=== PATIENT | male | born 1950 | race Caucasian/White ===

== ENCOUNTER 2020-01-23 11:50 | Emergency (ER) | payer MEDICARE, OTHER ==
[~2020-01-23] VITALS: Ht 170.2 cm; Wt 88.5 kg
[2020-01-23] MEDS ORDERED: GLIP10 PO (12:05)
[2020-01-23] MEDS ORDERED: EZETIMIBE10 MG PO (12:05)
[2020-01-23] MEDS ORDERED: ACTOS30 MG PO (12:05)
[2020-01-23] MEDS ORDERED: Metformin HCl1000 MG PO (12:05)
[2020-01-23] MEDS ORDERED: AMLODIPINE BESYL5 MG PO (12:05)
[2020-01-23] MEDS ORDERED: Percocet 7.5-31 EACH PO (13:59)
[2020-01-23] MEDS ORDERED: IBUP800 PO (13:59)
== END 2020-01-23 14:38 | disposition home or self-care (01) ==
LOC: ER 11:50
DX: S42.212A Unspecified displaced fracture of surgical neck of left humerus, initial encounter for closed fracture (principal); S22.42XA Multiple fractures of ribs, left side, initial encounter for closed fracture; E11.9 Type 2 diabetes mellitus without complications; I10 Essential (primary) hypertension; Z88.5 Allergy status to narcotic agent; Z91.040 Latex allergy status; Z79.84 Long term (current) use of oral hypoglycemic drugs; Z79.899 Other long term (current) drug therapy; W10.9XXA Fall (on) (from) unspecified stairs and steps, initial encounter
CPT/HCPCS: 29105; 36415; 71101; 73030; 73060; 96374-59; 96375-59; 96376-59; 99283-25; J1170; J2405

== ENCOUNTER 2020-04-26 12:26 | Day surgery (SDC) | payer MEDICARE, OTHER ==
[~2020-04-26] VITALS: Ht 170.2 cm; Wt 87.8 kg
[~2020-04-26 12:26] MED LIST: ACTOS30 MG PO; AMLODIPINE BESYL5 MG PO; EZETIMIBE10 MG PO; GLIP10 PO; IBUP800 PO; METF500 PO; Percocet 7.5-31 EACH PO
[2020-04-26] MEDS ORDERED: LISI20 PO (13:11)
--- NOTE | 2020-04-26 13:35 | NUR ---
Ambulatory in Day Surgery History, Chart, Medications and Allergies reviewed before start of procedure.Patient confirms NPO status and agrees with scheduled surgery. Surgical site prepped with 2% Chlorhexidine cloth wipe. Patient States Post-Procedure ride home has been arranged.
--- NOTE | 2020-04-26 16:31 | NUR ---
IV PULLED OUT WHEN TRANSFERING PT FROM [facility] TO [facility] TABLE
--- NOTE | 2020-04-27 05:07 | NUR ---
POD 1 S/P ORIF OF LEFT HUMERUS. PT VSS T/O NIGHT. DRESSING CDI, NO CHANGE IN SHOULDER SWELLING, SLING IN PLACE. PT CAP REFILL WNL, PT DENIED N/T. PT STRUGGLED W/PAIN CONTROL, REQ BOT HIV AND PO PAIN MEDS. PT REP SOME RELIEF W/ICE THERAPY. PT JORDANA REG PO, NO N/V, IS VOIDING URINE W/O DIFFICULTY. PT USING CALL LIGHT FOR ASSISTANCE, WILL CONT TO MONITOR UNTIL REP GIVEN TO ONCOMING RN.
--- NOTE | 2020-04-27 07:15 | NUR ---
recvd report from previous shift rn Mary, pt sleeping in bed, bed in lowest position, bed rails up x 2, call light within reach.
[2020-04-27] MEDS ORDERED: OXYC5 PO (08:30)
[2020-04-27] MEDS ORDERED: ACET500 PO (08:30)
--- NOTE | 2020-04-27 09:00 | NUR ---
pt up and dressed himself, requests this rn call ride in preparation for DC
--- NOTE | 2020-04-27 10:02 | NUR ---
[id number]-pt's son called for DC, provded discharge instructions and printed material. pt states understanding of instructions. pt states he has some slight nausea, no vomiting, which he believes is r/t pain medication prescribed. pt will call dr atkinson for change of pain medication. pt states he has some antinausea medication at home. peripheral IV removed WNL. pt carried his own belongings as he was transferred to awaiting vehicle via wheelchair.
== END 2020-04-27 09:45 | disposition home or self-care (01) ==
LOC: ORSCMMR 12:26 → ORD 14:15 → SURS 20:05 → ORSCMMR 04-27 09:45
PROVIDERS: Orthopaedic Surgery
PROC: 0PSD04Z Reposition Left Humeral Head with Internal Fixation Device, Open Approach (ICD-10-PCS; principal; 2020-04-26 14:15)
DX: S42.202A Unspecified fracture of upper end of left humerus, initial encounter for closed fracture (principal); I10 Essential (primary) hypertension; E11.9 Type 2 diabetes mellitus without complications; I25.2 Old myocardial infarction; E66.9 Obesity, unspecified; Z68.30 Body mass index [BMI] 30.0-30.9, adult; K21.9 Gastro-esophageal reflux disease without esophagitis; Z79.84 Long term (current) use of oral hypoglycemic drugs; Z79.899 Other long term (current) drug therapy
CPT/HCPCS: 82947; C1713; J0171; J0690; J1100; J1170; J1885; J2370; J2405; J2704; J3010; J7120

== ENCOUNTER 2023-08-02 09:51 | Inpatient (IN) | payer MEDICARE ==
[~2023-08-02] VITALS: Ht 170.2 cm; Wt 70.0 kg
[~2023-08-02 09:51] MED LIST changes: +ACET500 PO; +LISI20 PO; +OXYC5 PO
[2023-08-02] MEDS ORDERED: NIAC500 PO (10:12)
[2023-08-02] MEDS ORDERED: Vitamin D1000 UNI1 PO (10:12)
[2023-08-02] MEDS ORDERED: Cranberry400 MG PO (10:12)
[2023-08-02 10:26] LABS: BASOPHILS ABSOLUTE AUTO 0.03 K/mm3 (0.00-0.23); BASOPHILS PERCENT AUTO 1 % (0-2); EOSINOPHILS ABSOLUTE AUTO 0.05 K/mm3 (0.00-0.68); EOSINOPHILS PERCENT AUTO 1 % (0-6); Hematocrit 46.1 % (37.0-53.0); Hemoglobin 16.2 g/dL (13.5-17.5); IMMATURE GRAN ABSOLUTE AUTO 0.02 K/mm3 (0.00-0.10); IMMATURE GRAN PERCENT AUTO 0 % (0-1); LYMPHOCYTES ABSOLUTE AUTO 1.43 K/mm3 (0.84-5.20); LYMPHOCYTES PERCENT AUTO 25 % (21-46); MONOCYTES ABSOLUTE AUTO 0.38 K/mm3 (0.16-1.47); MONOCYTES PERCENT AUTO 7 % (4-13); Mean Corpuscular HGB 32.3 pg (26.0-34.0); Mean Corpuscular HGB Conc 35.1 g/dL (31.5-36.5); Mean Corpuscular Volume 92 fL (80-100); NEUTROPHILS ABSOLUTE AUTO 3.85 K/mm3 (1.96-9.15); NEUTROPHILS PERCENT AUTO 67 % (41-73); Platelet Count 198 K/mm3 (150-400); RDW Coefficient Variation 11.9 % (11.7-14.2); RDW Standard Deviation 40.1 fL (35.1-46.3); Red Blood Cell Count 5.02 M/mm3 (4.30-5.90); White Blood Cell Count 5.76 K/mm3 (4.00-11.30)
[2023-08-02 10:40] LABS: Albumin, Blood 3.8 g/dL (3.4-5.0); Albumin/Globulin Ratio 1.1 (0.8-1.8); Bilirubin, Total 0.6 mg/dL (0.1-1.0); Bun/Creatinine Ratio 12.1 (12.0-20.0); Creatinine, Blood 0.91 mg/dL (0.60-1.20); Globulin, Blood 3.5 g/dL (2.2-4.0); Potassium, Blood 4.2 mmol/L (3.5-5.5); Total Protein, Blood 7.3 g/dL (6.4-8.2)
[2023-08-02 16:35] VITALS: BP 182/79
--- NOTE | 2023-08-02 19:19 | NUR ---
PT ARRIVED TO [facility] VIA GURNEY FROM ED AT APROX 1625. PT A&OX4, ABLE TO STAND AND AMBULATE TO BED FROM [facility], GAIT STEADY. PT REPORTS NO N/T OTHER THAN A SLIGHTLY ON THE L SIDE OF HIS TOUNGE. SEE VS AND ADMISSION ASSESSMENT. ALLOWING FOR PERMISSIVE HTN. PT PASSED RN BEDSIDE SWALLOW EVAL W/O DIFFICULTY. PT'S FAMILY AT BEDSIDE THIS EVENING, UPDATED ON PLAN OF CARE AND PT CONDITION. FAMILY STATES THAT PT HAS NOT BEEN TAKING HIS MEDICATIONS PRESCRIBED. PT IS ABLE TO USE CALL LIGHT FOR NEEDS, CALL LIGHT IN REACH. REPORT GIVEN TO MAU MORELAND.
[2023-08-02 20:49] VITALS: BP 148/95
[2023-08-02 23:41] VITALS: BP 140/72
[2023-08-03 03:28] VITALS: BP 142/69
[2023-08-03 03:37] LABS: Hematocrit 46.7 % (37.0-53.0); Hemoglobin 15.9 g/dL (13.5-17.5); Mean Corpuscular HGB 31.7 pg (26.0-34.0); Mean Corpuscular Volume 93 fL (80-100); Mean Platelet Volume 10.7 fL (9.1-12.4); Platelet Count 205 K/mm3 (150-400); RDW Coefficient Variation 11.9 % (11.7-14.2); RDW Standard Deviation 40.9 fL (35.1-46.3); Red Blood Cell Count 5.02 M/mm3 (4.30-5.90); White Blood Cell Count 7.66 K/mm3 (4.00-11.30)
[2023-08-03 04:00] LABS: Alanine Aminotransfer (ALT/SGP 20 U/L (12-78); Albumin, Blood 3.3 g/dL (3.4-5.0); Alk Phos 63 U/L (50-136); Anion Gap 5 mmol/L (6-16); Aspartate Aminotrans (AST/SGOT 10 U/L (12-37); Bilirubin, Total 0.5 mg/dL (0.1-1.0); Blood Urea Nitrogen 11 mg/dL (8-24); Bun/Creatinine Ratio 11.9 (12.0-20.0); CHOL/HDL RATIO 6.6; CO2, Blood 28 mmol/L (21-32); Calcium, Blood 8.5 mg/dL (8.5-10.1); Chloride, Blood 105 mmol/L (98-108); Cholesterol 257 mg/dL (50-200); Creatinine, Blood 0.93 mg/dL (0.60-1.20); Globulin, Blood 3.3 g/dL (2.2-4.0); Glomerular Filtration Rate 88 (60-); Glucose, Blood 258 mg/dL (70-99); HDL Cholesterol 39 mg/dL (>39); LDL/HDL RATIO 4.5; Low Density Lipoprotein Chol 176 mg/dL (0-110); Magnesium, Blood 1.8 mg/dL (1.6-2.4); Potassium, Blood 4.3 mmol/L (3.5-5.5); Sodium, Blood 138 mmol/L (136-145); Total Protein, Blood 6.6 g/dL (6.4-8.2); Triglycerides 208 mg/dL (30-160); Very Low Density Lipoprot Chol 42 mg/dL (6-32)
--- NOTE | 2023-08-03 04:30 | NUR ---
SHIFT SUMMARY NO ACUTE CHANGES THIS SHIFT. VSS. AXO4. NEURO REMAINS UNCHANGED, NO DEFICITS NOTED EXCEPT REPORTED NUMBNESS TO LIPS AND L FINGERTIPS, THIS HAS DECREASED GRADUALLY T/O SHIFT WITH NEURO CHECKS. PT BP STABLE. INDEPENDENT. HAS BEEN RESTING THIS SHIFT. MAKING NEEDS KNOWN. PLEASANT, COOPERATIVE, JOVIAL.
[2023-08-03 08:00] VITALS: BP 131/72
[2023-08-03] MEDS ORDERED: AMLO5 PO (11:53)
[2023-08-03] MEDS ORDERED: ASPI81CH PO (11:53)
[2023-08-03] MEDS ORDERED: CLOP75 PO (11:54)
[2023-08-03] MEDS ORDERED: METF500 PO (11:55)
[2023-08-03] MEDS ORDERED: FENO67 PO (11:55)
== END 2023-08-03 12:36 | disposition home or self-care (01) | DRG 65 ==
LOC: ER 09:51 → PCU 14:38
PROVIDERS: Student in an Organized Health Care Education/Training Program; ADMIT Hospitalist
DX: I63.81 Other cerebral infarction due to occlusion or stenosis of small artery (principal); G81.94 Hemiplegia, unspecified affecting left nondominant side; I10 Essential (primary) hypertension; E11.9 Type 2 diabetes mellitus without complications; E78.5 Hyperlipidemia, unspecified; R29.702 NIHSS score 2; R47.81 Slurred speech; Z95.1 Presence of aortocoronary bypass graft; Z88.5 Allergy status to narcotic agent; Z91.040 Latex allergy status; Z79.899 Other long term (current) drug therapy; Z88.8 Allergy status to other drugs, medicaments and biological substances; Z79.84 Long term (current) use of oral hypoglycemic drugs; Z79.891 Long term (current) use of opiate analgesic; Z98.1 Arthrodesis status; Z98.890 Other specified postprocedural states
CPT/HCPCS: 36415; 70450; 70551; 80053; 80061; 82947; 83735; 85025; 85027; 93005; 93010; 93306; 93880; 94762; 97116; 97162; 99285-25; A9270; J1644; J1815

== ENCOUNTER 2024-10-29 12:28 | Emergency (ER) | payer MEDICARE ==
[~2024-10-29] VITALS: Ht 170.2 cm; Wt 63.5 kg
[~2024-10-29 12:28] MED LIST changes: +AMLO5 PO; +ASPI81CH PO; +CLOP75 PO; +Cranberry400 MG PO; +FENO67 PO; +NIAC500 PO; +Vitamin D1000 UNI1 PO
[2024-10-29 12:31] VITALS: BP 189/91
[2024-10-29] MEDS ORDERED: Diphth,Pertuss(Acell),Tet Vac 0.5 ML VIAL IM ONE (12:35)
== END 2024-10-29 14:51 | disposition home or self-care (01) ==
LOC: ER 12:28
DX: S61.210A Laceration without foreign body of right index finger without damage to nail, initial encounter (principal); E11.9 Type 2 diabetes mellitus without complications; I10 Essential (primary) hypertension; W26.9XXA Contact with unspecified sharp object(s), initial encounter; Z79.82 Long term (current) use of aspirin; Z79.84 Long term (current) use of oral hypoglycemic drugs; Z79.02 Long term (current) use of antithrombotics/antiplatelets; Z79.899 Other long term (current) drug therapy; Z88.5 Allergy status to narcotic agent; Z91.040 Latex allergy status
CPT/HCPCS: 12001; 73140; 90471; 90715; 99283-25